=== PATIENT | male | born 1990 | race African-American/Black ===

== ENCOUNTER 2018-06-07 00:02 | Emergency (ER) | payer BC ==
[2018-06-07] MEDS ORDERED: Lidocaine 1% PF 5 ML VIAL ONE (00:51)
--- NOTE | 2018-06-07 10:29 | CT ---
PRELIMINARY REPORT/[facility]/EMERGENTY AFTER-HOURS PROCEDURE CT Head Without Intravenous Contrast EXAM DATE/TIME: 06/07/2018 1:02 AM CLINICAL HISTORY: 28 years old, male; Pain; Headache; Patient HX: L sided head pain for 1 month; Denies HX of being dx with migraines; States pain radiates to his neck; Denies dizziness; Denies vision changes TECHNIQUE: Axial computed tomography images of the head/brain without intravenous contrast. COMPARISON: No relevant prior studies available. FINDINGS: Brain: Normal. No hemorrhage. No significant white matter disease. No edema. Ventricles: Normal. No ventriculomegaly. Bones/joints: Normal. No acute fracture. Sinuses: Normal as visualized. No acute sinusitis. Mastoid air cells: Normal as visualized. No mastoid effusion. Soft tissues: There is mild soft tissue stranding/hematoma at the RIGHT vertex measuring approximatel y 3 x 0.8 cm. IMPRESSION: No acute intracranial hemorrhage. Thank you for allowing us to participate in the care of your patient. Dictated and Authenticated by: Miguelangel Adan MD 06/07/2018 1:17 AM Central Time ([place] & [place]) FINAL REPORT CT BRAIN WITHOUT CONTRAST: Date: 06/07/18 FINDINGS/IMPRESSION: I agree with the preliminary report given by Michael. POS: [facility]
== END 2018-06-07 01:46 | disposition home or self-care (01) ==
LOC: ERS 00:02
DX: R51 Headache (principal)
CPT/HCPCS: 20552; 70450; J2001

== ENCOUNTER 2019-07-13 00:33 | Emergency (ER) | payer BC ==
[2019-07-13] MEDS ORDERED: Ketorolac Tromethamine 30 MG/ML VIAL ONE (01:13)
[2019-07-13] MEDS ORDERED: Acetaminophen 500 MG TAB ONE (01:13)
== END 2019-07-13 02:43 | disposition home or self-care (01) ==
LOC: ERS 00:33
DX: G43.909 Migraine, unspecified, not intractable, without status migrainosus (principal)
CPT/HCPCS: 96361; 96374; J1885

== ENCOUNTER 2020-01-06 15:47 | Inpatient (IN) | payer BC, OTHER ==
[2020-01-06] MEDS ORDERED: Azithromycin 500 MG VIAL ONE (16:40)
[2020-01-06] MEDS ORDERED: Acetaminophen 500 MG TAB ONE (16:44)
[2020-01-06] MEDS ORDERED: Ondansetron PF 4 MG/2 ML Vial IVP PRN (18:51)
[2020-01-06] MEDS ORDERED: Ondansetron ODT 4 MG TAB PO PRN (18:51)
[2020-01-06] MEDS ORDERED: Calcium Carbonate 500 MG ChewTAB PO PRN (18:51)
[2020-01-06] MEDS ORDERED: Guaifenesin DM 100-10/5 ML UDCUP PO PRN (18:51)
--- NOTE | 2020-01-06 19:41 | HP ---
PRIMARY CARE PHYSICIAN: None. CHIEF COMPLAINT: Worsening right-sided flank pain. HISTORY OF PRESENT ILLNESS: The patient is a 29-year-old male with past medical history significant for obesity who presents to the ER for the above complaint. The patient originally reported to the ER in [place] last Friday for right-sided flank pain. At that time, he had no nausea, vomiting, or diarrhea. He had no urinary symptoms. He denied any fever or chills. At that time, CT of the abdomen and pelvis was done and it showed a right-sided pneumonia. The patient apparently left AMA, but when he did leave, he did receive a prescription for Levaquin, which he reports he has been taking as prescribed. Then the patient reports this morning that he woke up with worsening right-sided flank pain with associated nonproductive cough and vomiting. He is unable to tolerate any p.o. intake. No liquids or solids. He denies any hemoptysis. He denies any diarrhea. He denies any urinary symptoms. He did report chills. For these reasons, he reported back to the ER in [place]. At the [place] ER, the patient was found to be febrile at 101.3, tachycardic with a heart rate of 130, tachypneic with a respiratory rate of 28. He was 97% on room air. CT of the abdomen and pelvis showed worsening right lower lobe pneumonia. His troponin was negative. His BNP was less than 10. His lactic acid is 1.3. His WBCs were 19.5, and the patient had a creatinine of 1.41. His LFTs and lipase were within normal limits. His UA was unremarkable. The patient was given azithromycin, vancomycin, and cefepime IV and 2 L of normal saline and transferred over to the [facility]. PAST MEDICAL HISTORY: Obesity. PAST SURGICAL HISTORY: None. SOCIAL HISTORY: The patient lives in [place] with his spouse. He works for [email or web address]. He denies any history of smoking, illicit drug use, or alcohol intake. FAMILY HISTORY: Noncontributory to this case. ALLERGIES: NO KNOWN DRUG ALLERGIES. HOME MEDICATIONS: Levaquin 750 mg p.o. daily. REVIEW OF SYSTEMS: All other review of systems are negative unless otherwise noted in the HPI. PHYSICAL EXAMINATION: VITAL SIGNS: Temperature 101.3, blood pressure 115/82, heart rate 130, respirations 28, 97% on room air. In the [facility] ER at time of assessment, the patient's temperature was 100.8, blood pressure 130/73, pulse 106, respirations 25 and nonlabored, 98% on room air, 0/10 pain. CONSTITUTIONAL: The patient is alert and oriented to person, place, and time. He appears uncomfortable and nontoxic. He is still tachycardic and febrile. HEENT: Head, atraumatic and normocephalic. Eyes, PERRLA. Extraocular muscles are intact. ENT, tympanic membranes bilaterally intact. No bleeding. Nares are patent bilaterally. No bleeding. Oropharynx is clear. Uvula midline. Tonsils normal. Moist mucous membranes. No oral lesions. NECK: Supple. Trachea midline. No cervical lymphadenopathy. No neck stiffness. RESPIRATORY: Chest, respirations clear to auscultation. No rhonchi, wheezes, or rubs noted. CARDIOVASCULAR: The patient presents tachycardic, regular rate and rhythm. S1 and S2 appreciated. No murmurs, rubs, or gallops. ABDOMEN: Soft, nontender. Active bowel sounds. No guarding. No rigidity. No rebound tenderness. Negative Rovsing's sign. No abdominal bruit auscultated. BACK: Full range of motion. No central spinous tenderness. No CVA tenderness. EXTREMITIES: Upper extremities, full range of motion. Normal strength. Sensation intact. Palpable radial pulses. Lower extremities, normal range of motion. Normal strength. Sensation intact. Palpable pedal pulses. No swelling. NEUROLOGIC: Patient is alert and oriented to person, place, and time. Speech is normal. Gait is normal. SKIN: Clean, dry, and intact. PSYCHIATRIC: Normal affect. No suicidal or homicidal ideation. LABS AND DIAGNOSTIC DATA: CT of the abdomen and pelvis showed worsening right lower lobe infiltrates. Lactic acid 1.3. Initial troponin negative. BNP less than 10. WBCs 19.5, hemoglobin 12.6, hematocrit 43.4, platelets 323. Sodium 133, potassium 3.9, chloride 100, carbon dioxide 23, BUN 17, creatinine 1.41, glucose 138, lipase 64. T bilirubin 0.7, AST 66, ALT 74, alkaline phosphatase 74. UA was unremarkable. IMPRESSION AND PLAN: 1. Community-acquired pneumonia, status post COVID-19. We will admit the patient to the medical floor, inpatient status. Expected length of stay, greater than 2 midnights. The patient tested positive for COVID [address] of the abdomen did show worsening right lower lobe pneumonia. We will continue azithromycin and Rocephin. The patient received 2 L IV fluid resuscitation. We will continue IV fluids at maintenance rate. We will continue supportive care, supplemental oxygen. The patient is currently saturating 97% on room air, able to talk in complete sentences. We will repeat a CBC and BMP in the a.m. 2. Sepsis likely secondary to problem #1. Blood cultures and urine cultures are pending. Lactic acid was 1.3. WBCs are 19.5. We will continue azithromycin and Rocephin and await cultures. 3. COVID. The patient was positive 2 weeks ago. He does work at [email or web address]. He reports that he had been feeling better prior to this Friday when he developed the right-sided flank pain. We will place the patient on droplet precautions. We will give Zofran p.r.n. 4. Acute kidney injury. The patient reports a decreased oral intake and has been vomiting. He had a creatinine of 1.41, baseline appears to be 1.05 on 01/01. We will continue IV fluid resuscitation. We will recheck labs in the a.m. We will avoid nephrotoxic medications. 5. Obesity. 6. Consult PT. 7. Heparin for deep venous thrombosis prophylaxis. SCDs for deep venous thrombosis prophylaxis. Protonix for gastrointestinal prophylaxis. 8. The patient is a full code. His MPOA is his spouse, Luz Elena Barber, #[phone]. 9. Discussed the case with Dr. Jones. Job ID: [id number] MTDD
[2020-01-06] MEDS: Sodium Chloride 0.9% 1,000 ML IV SCH (21:10)
[2020-01-06 21:51] VITALS: BMI 38.5
[2020-01-06] MEDS: Heparin 5,000 UNITS/ML VIAL SC SCH (21:57)
[2020-01-07] MEDS: Sodium Chloride 0.9% 1,000 ML IV SCH ×4 (03:33→20:56)
[2020-01-07] MEDS: Acetaminophen 325 MG TAB PO PRN ×2 (03:48→16:24)
[2020-01-07 05:34] LABS: Anion Gap 12 mmol/L (10-20); BUN (Urea Nitrogen) 13 mg/dL (8.9-20.6); Calc. Creatinine Clearance 170 mL/min (70-130); Calcium 8.1 mg/dL (7.8-10.44); Carbon Dioxide 23 mmol/L (22-29); Chloride 105 mmol/L (98-107); Estimated GFR-MDRD Greater than 90; Glucose 104 mg/dL (70-105); Sodium 136 mmol/L (136-145)
[2020-01-07 05:36] LABS: #Eosinphils 0.1 thou/uL (0.0-0.7); #Lymphocytes 1.5 thou/uL (1.20-3.40); #Monocytes 2.4 thou/uL (0.11-0.59); %Basophils 0.2 % (0.0-1.0); %Eosinophils 0.3 % (0.0-10.0); %Lymphocytes 8.5 % (21.0-51.0); %Monocytes 13.4 % (0.0-10.0); %Neutrophils 77.6 % (42.0-75.0); Hemoglobin 10.6 g/dL (14.0-18.0); MDiff Complete? YES; Mean Corpuscular HGB CONC 32.1 g/dL (32.0-36.0); Mean Corpuscular Hemoglobin 21.4 pg (27.0-31.0); Mean Corpuscular Volume 66.7 fL (78.0-98.0); Microcytosis SLIGHT = 6-15 cells (100X) (0-5/hpf); Platelet Count 266 thou/uL (130-400); Platelet Morphology Comment Appears Adequate; RBC Distribution Width 12.7 % (11.5-14.5); Red Blood Cell (RBC) Count 4.95 mill/uL (4.70-6.10)
[2020-01-07] MEDS: Heparin 5,000 UNITS/ML VIAL SC SCH ×2 (08:15→20:51)
[2020-01-07] MEDS: cefTRIAXone\\ROCEPHIN 2 GM in Sodium Chloride 0.9% 100 ML IVPB SCH (14:38)
[2020-01-07] MEDS: HYDROcodone/Acetaminophen 5/325 mg Tablet PO PRN ×2 (14:39→20:51)
[2020-01-07] MEDS: Azithromycin 500 MG in Sodium Chloride 0.9% 250 ML 250 ML IVPB SCH (16:02)
--- NOTE | 2020-01-07 16:23 | PDOC.HOSPP ---
- Subjective Encounter Date: 01/07/20 Subjective: patient seen on f/u for pneumonia, covid +, sepsis refers does not feel very good. refers fever chills cough and malaise, pt on RA during my evaluation with adequate saturation - Objective Vital Signs & Weight: Vital Signs (12 hours) Temp Pulse Pulse Pulse Resp BP BP 01/07/20 12:32 103 H 113 H 143/77 H 137/86 01/07/20 12:00 99.7 F H 104 H 18 01/07/20 08:00 96.3 F L 94 20 BP Pulse Ox Pulse Ox Pulse Ox 01/07/20 12:32 96 98 01/07/20 12:00 143/77 H 96 01/07/20 08:00 136/80 96 Weight Admit Weight 276 lb 11.2 oz Weight 276 lb 11.2 oz I&O: 01/06/20 01/07/20 01/08/20 06:59 06:59 06:59 Intake Total 1580 Output Total 1200 Balance 380 Result Diagrams: 01/07/20 05:02 01/07/20 05:02 Hospitalist ROS - Review of Systems All other systems reviewed; all pertinent +/- noted in HPI/Subj - Medication Medications: Active Medications Generic Name Dose Route Start Last Admin Trade Name Freq PRN Reason Stop Dose Admin Acetaminophen 650 mg 01/06/20 18:51 01/07/20 03:48 Tylenol PO 650 mg Q4H PRN Administration Headache/Fever/Mild Pain (1-3) Hydrocodone Bitart/Acetaminophen 1 tab 01/06/20 18:51 01/07/20 14:39 [place] 5/325 PO 1 tab Q4H PRN Administration Moderate Pain (4-6) Heparin Sodium (Porcine) 5,000 units 01/06/20 21:00 01/07/20 08:15 Heparin SC 5,000 units BID ÁLVARO Administration Sodium Chloride 1,000 mls @ 125 mls/hr 01/06/20 20:00 01/07/20 12:53 Normal Saline 0.9% IV 1,000 mls .Q8H ÁLVARO Administration Azithromycin 500 mg/ Sodium 250 mls @ 250 mls/hr 01/07/20 15:00 01/07/20 16: 02 Chloride IVPB 250 mls 1500 ÁLVARO Administration Ceftriaxone Sodium 2 gm/ 100 mls @ 200 mls/hr 01/07/20 14:00 01/07/20 14:38 Sodium Chloride IVPB 100 mls 1400 ÁLVARO Administration Pantoprazole Sodium 40 mg 01/07/20 09:00 01/07/20 08:15 Protonix PO 40 mg DAILY ÁLVARO Administration Sodium Chloride 10 ml 01/06/20 18:51 01/07/20 08:15 Flush - Normal Saline IVF 10 ml Q12HR PRN Administration Saline Flush - Exam General Appearance: NAD, awake alert, ill appearing Eye: PERRL, anicteric sclera ENT: normocephalic atraumatic, no oropharyngeal lesions Neck: supple, symmetric, no JVD Heart: RRR, no murmur, no gallops Respiratory: CTAB, no wheezes, no rales Gastrointestinal: soft, non-tender, non-distended Extremities: no cyanosis, no clubbing Skin: normal turgor, no lesions Neurological: cranial nerve grossly intact, normal sensation to touch Musculoskeletal: normal tone, normal strength, no muscle wasting Psychiatric: normal affect, normal behavior, A&O x 3 Hosp A/P (1) Sepsis Code(s): A41.9 - SEPSIS, UNSPECIFIED ORGANISM Status: Acute (2) COVID-19 Code(s): U07.1 - COVID-19 Status: Acute (3) Pneumonia Code(s): J18.9 - PNEUMONIA, UNSPECIFIED ORGANISM Status: Acute (4) SAMI (acute kidney injury) Code(s): N17.9 - ACUTE KIDNEY FAILURE, UNSPECIFIED Status: Acute - Plan - continue with rocephin and azithromycin - continues with fever will order blood culture set - 02 supplemenatation prn - continue ivfs - continue isolation protocols - renal function seems to be back to normal - leukocytosis improving, will consider ID if no significant change observed
[2020-01-07] MEDS ORDERED: Loperamide HCl 2 MG CAP PO PRN (23:16)
[2020-01-08 05:44] LABS: Anion Gap 11 mmol/L (10-20); BUN (Urea Nitrogen) 9 mg/dL (8.9-20.6); Calc. Creatinine Clearance 198 mL/min (70-130); Calcium 8.2 mg/dL (7.8-10.44); Carbon Dioxide 23 mmol/L (22-29); Chloride 106 mmol/L (98-107); Estimated GFR-MDRD Greater than 90; Glucose 96 mg/dL (70-105); Potassium 3.7 mmol/L (3.5-5.1); Sodium 136 mmol/L (136-145)
[2020-01-08] MEDS: Sodium Chloride 0.9% 1,000 ML IV SCH ×2 (07:03→16:41)
[2020-01-08] MEDS: Heparin 5,000 UNITS/ML VIAL SC SCH ×2 (08:50→20:13)
[2020-01-08 08:56] LABS: Band 10 % (5-11); Eosinophils 1 % (0-10); Hemoglobin 10.4 g/dL (14.0-18.0); Lymphocytes 12 % (21-51); MDiff Complete? YES; Mean Corpuscular HGB CONC 30.5 g/dL (32.0-36.0); Mean Corpuscular Hemoglobin 20.5 pg (27.0-31.0); Mean Corpuscular Volume 67.1 fL (78.0-98.0); Monocytes 5 % (0-10); Neutrophil 71 % (42-75); Platelet Count 294 thou/uL (130-400); RBC Distribution Width 12.5 % (11.5-14.5); Red Blood Cell (RBC) Count 5.08 mill/uL (4.70-6.10); White Blood Cell (WBC) Count 19.4 thou/uL (4.8-10.8)
[2020-01-08] MEDS: cefTRIAXone\\ROCEPHIN 2 GM in Sodium Chloride 0.9% 100 ML IVPB SCH (15:11)
[2020-01-08] MEDS: Azithromycin 500 MG in Sodium Chloride 0.9% 250 ML 250 ML IVPB SCH (15:11)
[2020-01-08] MEDS: Acetaminophen 325 MG TAB PO PRN (16:51)
--- NOTE | 2020-01-08 17:31 | PDOC.HOSPP ---
- Subjective Encounter Date: 01/08/20 Encounter Time: 17:30 Subjective: f/u for COVID-19 PNA on Rocephin/Zithromax. Spiking fevers throughout the day. Overall feels weak and fatigued. - Objective Vital Signs & Weight: Vital Signs (12 hours) Temp Pulse Resp BP Pulse Ox 01/08/20 15:20 99.7 F H 106 H 16 128/70 94 L 01/08/20 11:50 100.1 F H 94 18 135/81 95 01/08/20 08:58 100.0 F H 96 16 135/77 96 01/08/20 05:35 99.9 F H 97 22 H 134/80 94 L Weight Admit Weight 276 lb 11.2 oz Weight 276 lb 11.2 oz I&O: 01/07/20 01/08/20 01/09/20 06:59 06:59 06:59 Intake Total 1580 5011 440 Output Total 1200 1880 Balance 380 3131 440 Result Diagrams: 01/08/20 05:05 01/08/20 05:05 Additional Labs: Microbiology 01/07/20 17:01 Venous blood - Right Hand Blood Culture - Preliminary Specimen has been received and culture in progress. No Growth to date. 01/07/20 17:01 Venous blood - Left Arm Blood Culture - Preliminary Specimen has been received and culture in progress. No Growth to date. Laboratory Tests 01/07/20 05:02 WBC 18.0 H Hgb 10.6 L Radiology Reviewed by me: Yes (CT chest/abd/pel - RLL PNA and CHUCK infiltrates) EKG Reviewed by me: Yes (Tele - SR) Hospitalist ROS - Medication Medications: Active Medications Generic Name Dose Route Start Last Admin Trade Name Freq PRN Reason Stop Dose Admin Acetaminophen 650 mg 01/06/20 18:51 01/08/20 16:51 Tylenol PO 650 mg Q4H PRN Administration Headache/Fever/Mild Pain (1-3) Hydrocodone Bitart/Acetaminophen 1 tab 01/06/20 18:51 01/07/20 20:51 [place] 5/325 PO 1 tab Q4H PRN Administration Moderate Pain (4-6) Heparin Sodium (Porcine) 5,000 units 01/06/20 21:00 01/08/20 08:50 Heparin SC 5,000 units BID ÁLVARO Administration Azithromycin 500 mg/ Sodium 250 mls @ 250 mls/hr 01/07/20 15:00 01/08/20 15: 11 Chloride IVPB 250 mls 1500 ÁLVARO Administration Ceftriaxone Sodium 2 gm/ 100 mls @ 200 mls/hr 01/07/20 14:00 01/08/20 15:11 Sodium Chloride IVPB 100 mls 1400 ÁLVARO Administration Sodium Chloride 1,000 mls @ 75 mls/hr 01/07/20 16:30 01/08/20 16:41 Normal Saline 0.9% IV Not Given .[id number] ÁLVARO Ondansetron HCl 4 mg 01/06/20 18:51 01/08/20 05:33 Zofran IVP 4 mg Q6H PRN Administration Nausea/Vomiting Pantoprazole Sodium 40 mg 01/07/20 09:00 01/08/20 08:50 Protonix PO 40 mg DAILY ÁLVARO Administration Sodium Chloride 10 ml 01/06/20 18:51 01/07/20 08:15 Flush - Normal Saline IVF 10 ml Q12HR PRN Administration Saline Flush - Exam General Appearance: NAD, awake alert Eye: PERRL, anicteric sclera ENT: normocephalic atraumatic, no oropharyngeal lesions Neck: supple, symmetric, no JVD, no thyromegaly, no lymphadenopathy Heart: RRR, no murmur, no gallops, no rubs, normal peripheral pulses Heart - other findings: S1, S2 Respiratory: normal chest expansion Respiratory - other findings: diminished in R base, occasional coarse sound Gastrointestinal: soft, non-tender, non-distended, normal bowel sounds, no palpable masses Extremities: no cyanosis, no clubbing, no edema Skin: normal turgor, no lesions Neurological: cranial nerve grossly intact, no new deficit Musculoskeletal: normal tone, normal strength, no muscle wasting Psychiatric: normal affect, A&O x 3 Hosp A/P (1) Pneumonia due to COVID-19 virus Code(s): U07.1 - COVID-19; J12.89 - OTHER VIRAL PNEUMONIA Status: Acute Plan: Continue Rocephin/Zithromax, Albuterol MDI (2) Sepsis due to pneumonia Code(s): J18.9 - PNEUMONIA, UNSPECIFIED ORGANISM; A41.9 - SEPSIS, UNSPECIFIED ORGANISM Status: Acute Plan: See #1 above (3) SAMI (acute kidney injury) Code(s): N17.9 - ACUTE KIDNEY FAILURE, UNSPECIFIED Status: Acute Plan: Resolving, avoid nephrotoxic meds and limit contrast exposure (4) Microcytic anemia Code(s): D50.9 - IRON DEFICIENCY ANEMIA, UNSPECIFIED Status: Chronic Plan: Check stool guaiac, serum Iron, Retic count - Plan continue antibiotics, 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
[2020-01-09 05:37] LABS: Reticulocyte Count 0.8 % (0.5-1.5)
[2020-01-09 06:40] LABS: Eosinophils 2 % (0-10); Hemoglobin 10.1 g/dL (14.0-18.0); Hypochromia SLIGHT = 6-15 cells (100X) (0-5/hpf); Lymphocytes 7 % (21-51); MDiff Complete? YES; Mean Corpuscular Hemoglobin 20.2 pg (27.0-31.0); Mean Corpuscular Volume 67.4 fL (78.0-98.0); Mean Platelet Volume 10.8 fL (7.4-10.4); Monocytes 9 % (0-10); Neutrophil 82 % (42-75); Platelet Count 291 thou/uL (130-400); Platelet Morphology Comment Appears Adequate; RBC Distribution Width 12.7 % (11.5-14.5); Red Blood Cell (RBC) Count 5.02 mill/uL (4.70-6.10); Target Cells SLIGHT = 2-5 cells (100X) (0-1/hpf); White Blood Cell (WBC) Count 13.4 thou/uL (4.8-10.8)
[2020-01-09] MEDS: HYDROcodone/Acetaminophen 5/325 mg Tablet PO PRN (08:00)
[2020-01-09] MEDS: Sodium Chloride 0.9% 1,000 ML IV SCH ×2 (08:00→20:52)
[2020-01-09] MEDS: Heparin 5,000 UNITS/ML VIAL SC SCH ×2 (08:01→20:52)
--- NOTE | 2020-01-09 12:19 | PDOC.HOSPP ---
- Subjective Encounter Date: 01/09/20 Encounter Time: 12:15 Subjective: f/u for PNA and COVID - Objective Vital Signs & Weight: Vital Signs (12 hours) Temp Pulse Resp BP Pulse Ox 01/09/20 02:48 99.2 F 90 18 132/83 97 Weight Admit Weight 276 lb 11.2 oz Weight 276 lb 11.2 oz I&O: 01/08/20 01/09/20 01/10/20 06:59 06:59 06:59 Intake Total 5011 3790 Output Total 1880 1900 Balance 3131 1890 Result Diagrams: 01/09/20 05:16 01/08/20 05:05 Additional Labs: Microbiology 01/07/20 17:01 Venous blood - Right Hand Blood Culture - Preliminary Specimen has been received and culture in progress. No Growth to date. 01/07/20 17:01 Venous blood - Left Arm Blood Culture - Preliminary Specimen has been received and culture in progress. No Growth to date. Laboratory Tests 12/24/19 01/07/20 16:10 05:02 WBC 18.0 H Hgb 10.6 L COVID-19 PCR DETECTED A* Hospitalist ROS - Medication Medications: Active Medications Generic Name Dose Route Start Last Admin Trade Name Freq PRN Reason Stop Dose Admin Acetaminophen 650 mg 01/06/20 18:51 01/08/20 16:51 Tylenol PO 650 mg Q4H PRN Administration Headache/Fever/Mild Pain (1-3) Hydrocodone Bitart/Acetaminophen 1 tab 01/06/20 18:51 01/09/20 08:00 [place] 5/325 PO 1 tab Q4H PRN Administration Moderate Pain (4-6) Heparin Sodium (Porcine) 5,000 units 01/06/20 21:00 01/09/20 08:01 Heparin SC 5,000 units BID ÁLVARO Administration Azithromycin 500 mg/ Sodium 250 mls @ 250 mls/hr 01/07/20 15:00 01/08/20 15: 11 Chloride IVPB 250 mls 1500 ÁLVARO Administration Ceftriaxone Sodium 2 gm/ 100 mls @ 200 mls/hr 01/07/20 14:00 01/08/20 15:11 Sodium Chloride IVPB 100 mls 1400 ÁLVARO Administration Sodium Chloride 1,000 mls @ 75 mls/hr 01/07/20 16:30 01/09/20 08:00 Normal Saline 0.9% IV 1,000 mls .[id number] ÁLVARO Administration Ondansetron HCl 4 mg 01/06/20 18:51 01/08/20 05:33 Zofran IVP 4 mg Q6H PRN Administration Nausea/Vomiting Pantoprazole Sodium 40 mg 01/07/20 09:00 01/09/20 08:01 Protonix PO 40 mg DAILY ÁLVARO Administration Sodium Chloride 10 ml 01/06/20 18:51 01/07/20 08:15 Flush - Normal Saline IVF 10 ml Q12HR PRN Administration Saline Flush - Exam General Appearance: NAD, awake alert Eye: PERRL, anicteric sclera ENT: normocephalic atraumatic, no oropharyngeal lesions Neck: supple, symmetric, no JVD, no thyromegaly, no lymphadenopathy Heart: RRR, no murmur, no gallops, no rubs, normal peripheral pulses Heart - other findings: S1, S2 Respiratory: no rales, no ronchi, normal chest expansion Respiratory - other findings: diminished in RLL Gastrointestinal: soft, non-tender, non-distended, normal bowel sounds, no palpable masses Extremities: no cyanosis, no clubbing, no edema Skin: normal turgor, no lesions Neurological: cranial nerve grossly intact, no new deficit Musculoskeletal: normal tone, normal strength, no muscle wasting Psychiatric: normal affect, A&O x 3 Hosp A/P (1) Pneumonia due to COVID-19 virus Code(s): U07.1 - COVID-19; J12.89 - OTHER VIRAL PNEUMONIA Status: Acute Plan: Continue Zithromax/Rocephin, Albuterol MDI PRN (2) Sepsis due to pneumonia Code(s): J18.9 - PNEUMONIA, UNSPECIFIED ORGANISM; A41.9 - SEPSIS, UNSPECIFIED ORGANISM Status: Acute Plan: Improved, continue IV abx (3) SAMI (acute kidney injury) Code(s): N17.9 - ACUTE KIDNEY FAILURE, UNSPECIFIED Status: Acute Plan: Resolved, avoid nephrotoxic meds and limit contrast (4) Microcytic anemia Code(s): D50.9 - IRON DEFICIENCY ANEMIA, UNSPECIFIED Status: Chronic Plan: Start FeSO4 325mg BID - Plan continue antibiotics, respiratory therapy, out of bed/ambulate, DVT proph w/SCDs Stable currently Continue Rocephin/Zithromax COVID-19 + from 12/24/19 Start FeSO4 325mg BID Isolation precautions Likely d/c in 24h
[2020-01-09] MEDS: cefTRIAXone\\ROCEPHIN 2 GM in Sodium Chloride 0.9% 100 ML IVPB SCH (14:14)
[2020-01-09] MEDS: Azithromycin 500 MG in Sodium Chloride 0.9% 250 ML 250 ML IVPB SCH (14:15)
[2020-01-09] MEDS: Ferrous Sulfate 325 MG TAB PO SCH (14:15)
[2020-01-10] MEDS: Ferrous Sulfate 325 MG TAB PO SCH ×2 (10:06→17:07)
[2020-01-10] MEDS: Heparin 5,000 UNITS/ML VIAL SC SCH ×2 (10:06→22:30)
[2020-01-10] MEDS: cefTRIAXone\\ROCEPHIN 2 GM in Sodium Chloride 0.9% 100 ML IVPB SCH (14:56)
[2020-01-10] MEDS: Azithromycin 500 MG in Sodium Chloride 0.9% 250 ML 250 ML IVPB SCH (16:18)
--- NOTE | 2020-01-10 17:26 | PDOC.HOSPP ---
- Subjective Encounter Date: 01/10/20 Encounter Time: 17:20 Subjective: f/u for COVID-19 PNA on Rocephin/Zithromax. Still with persistent coughing. Appetite ok. - Objective Vital Signs & Weight: Vital Signs (12 hours) Temp Pulse Resp BP Pulse Ox 01/10/20 16:00 98.1 F 98 24 H 144/91 H 98 01/10/20 12:00 98.8 F 69 20 145/96 H 01/10/20 08:00 97 01/10/20 07:44 98.5 F 78 28 H 159/98 H 97 Weight Admit Weight 276 lb 11.2 oz Weight 276 lb 11.2 oz I&O: 01/09/20 01/10/20 01/11/20 06:59 06:59 06:59 Intake Total 3790 3340 Output Total 1900 1575 Balance 1890 1765 Result Diagrams: 01/09/20 05:16 01/08/20 05:05 Additional Labs: Microbiology 01/07/20 17:01 Venous blood - Right Hand Blood Culture - Preliminary Specimen has been received and culture in progress. No Growth to date. 01/07/20 17:01 Venous blood - Left Arm Blood Culture - Preliminary Specimen has been received and culture in progress. No Growth to date. Laboratory Tests 12/24/19 01/07/20 16:10 05:02 WBC 18.0 H Hgb 10.6 L COVID-19 PCR DETECTED A* Hospitalist ROS - Medication Medications: Active Medications Generic Name Dose Route Start Last Admin Trade Name Freq PRN Reason Stop Dose Admin Acetaminophen 650 mg 01/06/20 18:51 01/08/20 16:51 Tylenol PO 650 mg Q4H PRN Administration Headache/Fever/Mild Pain (1-3) Hydrocodone Bitart/Acetaminophen 1 tab 01/06/20 18:51 01/09/20 08:00 [place] 5/325 PO 1 tab Q4H PRN Administration Moderate Pain (4-6) Ferrous Sulfate 325 mg 01/09/20 17:00 01/10/20 17:07 Feosol PO 325 mg BID-WM ÁLVARO Administration Heparin Sodium (Porcine) 5,000 units 01/06/20 21:00 01/10/20 10:06 Heparin SC 5,000 units BID ÁLVARO Administration Azithromycin 500 mg/ Sodium 250 mls @ 250 mls/hr 01/07/20 15:00 01/10/20 16: 18 Chloride IVPB 250 mls 1500 ÁLVARO Administration Ceftriaxone Sodium 2 gm/ 100 mls @ 200 mls/hr 01/07/20 14:00 01/10/20 14:56 Sodium Chloride IVPB 100 mls 1400 ÁLVARO Administration Sodium Chloride 1,000 mls @ 75 mls/hr 01/07/20 16:30 01/09/20 20:52 Normal Saline 0.9% IV 1,000 mls .[id number] ÁLVARO Administration Ondansetron HCl 4 mg 01/06/20 18:51 01/08/20 05:33 Zofran IVP 4 mg Q6H PRN Administration Nausea/Vomiting Pantoprazole Sodium 40 mg 01/07/20 09:00 01/10/20 10:06 Protonix PO 40 mg DAILY ÁLVARO Administration Sodium Chloride 10 ml 01/06/20 18:51 01/07/20 08:15 Flush - Normal Saline IVF 10 ml Q12HR PRN Administration Saline Flush - Exam General Appearance: NAD, awake alert Eye: PERRL, anicteric sclera ENT: normocephalic atraumatic, no oropharyngeal lesions Neck: supple, symmetric, no JVD, no thyromegaly, no lymphadenopathy Heart: RRR, no murmur, no gallops, no rubs, normal peripheral pulses Heart - other findings: S1, S2 Respiratory: CTAB, normal chest expansion, no tachypnea Respiratory - other findings: diminished in bases Gastrointestinal: soft, non-tender, non-distended, normal bowel sounds, no palpable masses Extremities: no cyanosis, no clubbing, no edema Skin: normal turgor, no lesions Neurological: cranial nerve grossly intact, no new deficit Musculoskeletal: normal tone, normal strength, no muscle wasting Psychiatric: normal affect, A&O x 3 Hosp A/P (1) Pneumonia due to COVID-19 virus Code(s): U07.1 - COVID-19; J12.89 - OTHER VIRAL PNEUMONIA Status: Acute Plan: Continue Rocephin/Zithromax then de-escalate 01/11/20 (2) Sepsis due to pneumonia Code(s): J18.9 - PNEUMONIA, UNSPECIFIED ORGANISM; A41.9 - SEPSIS, UNSPECIFIED ORGANISM Status: Acute Plan: Resolving with supportive mgmt (3) SAMI (acute kidney injury) Code(s): N17.9 - ACUTE KIDNEY FAILURE, UNSPECIFIED Status: Acute Plan: Resolving, saline lock IVF's (4) Microcytic anemia Code(s): D50.9 - IRON DEFICIENCY ANEMIA, UNSPECIFIED Status: Chronic - Plan continue antibiotics, 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
[2020-01-10] MEDS: Guaifenesin DM 100-10/5 ML UDCUP PO SCH (22:30)
[2020-01-11] MEDS: Guaifenesin DM 100-10/5 ML UDCUP PO SCH ×2 (06:16→10:50)
[2020-01-11] MEDS: Ferrous Sulfate 325 MG TAB PO SCH (08:06)
[2020-01-11] MEDS: Heparin 5,000 UNITS/ML VIAL SC SCH (08:06)
--- NOTE | 2020-01-11 09:37 | DIS ---
DATE OF ADMISSION: 01/06/2020 DATE OF DISCHARGE: 01/11/2020 DISCHARGE DIAGNOSES: 1. Pneumonia due to COVID-19 viral infection. 2. Sepsis secondarily to pneumonia, resolving. 3. Acute kidney injury, resolved. 4. Microcytic anemia with iron deficiency component. CONSULTATIONS: None. PERTINENT LABORATORY AND X-RAY FINDINGS: Serum iron level 32. CBC showed a white blood cell count ranging between 13.4 to 19.4, hemoglobin ranged between 10.1 to 10.6, reticulocyte count 0.8. Blood cultures x2 dated 01/07/2020, showed no growth at [address] of the chest, abdomen, and pelvis dated 01/06/2020, showed right lower lobe pneumonia greater in density than previous imaging. Tiny ground-glass opacities in the left upper lobe. HOSPITAL COURSE: The patient initially presented with complaints of right-sided flank pain and shortness of breath in the context of previous COVID-19 PCR positive on 12/24/2019. Chest imaging showed right lower lobe infiltrate and the patient was noted febrile. The patient was initiated on broad-spectrum IV antibiotic therapy including azithromycin and Rocephin and received IV fluid resuscitation after meeting sepsis criteria. The patient was noted with O2 saturations in the upper 90% range, but did receive initial transient oxygen supplementation. The patient continued to receive IV antibiotic therapy and placed on isolation protocol during the hospital course. The patient was slow to clinically improved, however, was able to tolerate regular oral intake with stable vital signs and remained afebrile for the remainder of the hospital course. Overall, the patient did remain clinically stable and ready for discharge on 01/11/2020. I have examined the patient at the time of discharge and discussed followup instructions. The patient verbalized understanding and agreement, ready for discharge on 01/11/2020. DISCHARGE MEDICATIONS: 1. Azithromycin 500 mg p.o. daily x7 days. 2. Ferrous sulfate 325 mg p.o. b.i.d. FOLLOWUP: The patient to establish care with primary care provider in the [facility] in [place], [place] after discharge. CONDITION ON DISCHARGE: Stable. ACTIVITY: Ad-gregor. May return to work duty on 01/18/2020. DIET: Regular. CODE STATUS: Full. DISPOSITION: Home on 01/11/2020. TIME SPENT: Total time preparing and coordinating discharge, 33 minutes. Job ID: [id number]
[2020-01-11 11:18] VITALS: BP 148/89; TEMP 98.4
== END 2020-01-11 12:24 | disposition home or self-care (01) | DRG 871 ==
LOC: ERS 15:47 → 2SW 16:54 → T4-B 01-08 20:02
PROVIDERS: ADMIT Internal Medicine; ATTEND Internal Medicine
PROC: 8E0ZXY6 Isolation (ICD-10-PCS; principal; 2020-01-06)
DX: A41.89 Other specified sepsis (principal); U07.1 COVID-19; J12.89 Other viral pneumonia; N17.9 Acute kidney failure, unspecified; E66.9 Obesity, unspecified; D50.9 Iron deficiency anemia, unspecified; Z68.38 Body mass index [BMI] 38.0-38.9, adult
CPT/HCPCS: 36415; 36600; 80048; 83540; 85007; 85025; 85027; 85046; 87040; 94760; 96361; 96365; J0456; J0696; J1644; J2405; J3490; J7050

== ENCOUNTER 2023-02-10 09:24 | Inpatient (IN) | payer BC ==
[2023-02-10 11:46] VITALS: BMI 45.6
[2023-02-10] MEDS ORDERED: Bisacodyl 10 MG SUPP PR PRN (11:52)
[2023-02-10] MEDS ORDERED: Senokot S 8.6-50 MG TAB PO PRN (11:52)
[2023-02-10] MEDS ORDERED: Guaifenesin DM 100-10/5 ML UDCUP PO PRN (11:52)
[2023-02-10] MEDS ORDERED: Ondansetron PF 4 MG/2 ML Vial IVP PRN (11:52)
[2023-02-10] MEDS ORDERED: Acetaminophen 325 MG TAB PO PRN (11:52)
[2023-02-10] MEDS ORDERED: HYDROcodone/Acetaminophen 5/325 mg Tablet PO PRN (11:52)
[2023-02-10] MEDS ORDERED: Calcium Carbonate 500 MG ChewTAB PO PRN (11:52)
[2023-02-10] MEDS: Sodium Chloride 0.9% 1,000 ML IV SCH ×2 (13:07→20:32)
[2023-02-10] MEDS: cefTRIAXone\\ROCEPHIN 1 GM in Sodium Chloride 0.9% 100 ML IVPB SCH (13:07)
[2023-02-10] MEDS: Famotidine 20 MG TAB PO SCH (20:34)
[2023-02-11 07:57] LABS: #Eosinphils 0.1 thou/uL (0.0-0.7); #Monocytes 1.1 thou/uL (0.11-0.59); #Neutrophils 6.4 thou/uL (1.40-6.50); %Basophils 0.4 % (0.0-1.0); %Eosinophils 1.2 % (0.0-10.0); %Lymphocytes 14.6 % (21.0-51.0); %Monocytes 12.2 % (0.0-10.0); Hemoglobin 10.7 g/dL (14.0-18.0); Mean Corpuscular HGB CONC 30.9 g/dL (32.0-36.0); Mean Corpuscular Hemoglobin 20.7 pg (27.0-31.0); Mean Corpuscular Volume 66.8 fl (78.0-98.0); Mean Platelet Volume 11.3 fL (7.4-10.4); Platelet Count 235 10x3/uL (130-400); RBC Distribution Width 14.1 % (11.5-14.5); Red Blood Cell (RBC) Count 5.18 mill/uL (4.70-6.10)
[2023-02-11 08:25] LABS: Anion Gap 11 mmol/L (10-20); BUN (Urea Nitrogen) 11 mg/dL (8.9-20.6); Calc. Creatinine Clearance 191 mL/min (70-130); Calcium 8.5 mg/dL (7.8-10.44); Carbon Dioxide 19 mmol/L (22-29); Chloride 109 mmol/L (98-107); Estimated GFR 87; Glucose 95 mg/dL (70-105); Sodium 135 mmol/L (136-145)
[2023-02-11] MEDS: Famotidine 20 MG TAB PO SCH ×2 (08:31→21:07)
[2023-02-11] MEDS: Sodium Chloride 0.9% 1,000 ML IV SCH ×2 (08:31→14:29)
[2023-02-11 10:20] LABS: CellaVision Operator ID LAB.GE; Microcytosis MODERATE=15-30 cells HPF (0-5); Platelet Adequacy Comment Platelets Normal; Polychromasia SLIGHT = 2-3 cells HPF (0-2)
[2023-02-11] MEDS: cefTRIAXone\\ROCEPHIN 1 GM in Sodium Chloride 0.9% 100 ML IVPB SCH (11:21)
[2023-02-12] MEDS: Sodium Chloride 0.9% 1,000 ML IV SCH ×2 (05:32→11:50)
[2023-02-12 07:41] LABS: #Eosinphils 0.6 thou/uL (0.0-0.7); #Monocytes 1.2 thou/uL (0.11-0.59); %Basophils 0.6 % (0.0-1.0); %Eosinophils 7.8 % (0.0-10.0); %Lymphocytes 31.2 % (21.0-51.0); %Monocytes 17.4 % (0.0-10.0); %Neutrophils 42.7 % (42.0-75.0); Hemoglobin 10.7 g/dL (14.0-18.0); Mean Corpuscular HGB CONC 30.8 g/dL (32.0-36.0); Mean Corpuscular Hemoglobin 20.9 pg (27.0-31.0); Mean Corpuscular Volume 67.6 fl (78.0-98.0); Mean Platelet Volume 11.5 fL (7.4-10.4); Platelet Count 245 10x3/uL (130-400); RBC Distribution Width 14.5 % (11.5-14.5); Red Blood Cell (RBC) Count 5.13 mill/uL (4.70-6.10)
[2023-02-12 08:02] LABS: Anion Gap 4 mmol/L (10-20); BUN (Urea Nitrogen) 8 mg/dL (8.9-20.6); Calc. Creatinine Clearance 206 mL/min (70-130); Calcium 8.4 mg/dL (7.8-10.44); Carbon Dioxide 22 mmol/L (22-29); Chloride 112 mmol/L (98-107); Estimated GFR 95; Glucose 89 mg/dL (70-105); Potassium 3.9 mmol/L (3.5-5.1); Sodium 134 mmol/L (136-145)
[2023-02-12] MEDS: Famotidine 20 MG TAB PO SCH ×2 (08:13→20:08)
[2023-02-12] MEDS: cefTRIAXone\\ROCEPHIN 1 GM in Sodium Chloride 0.9% 100 ML IVPB SCH (11:50)
[2023-02-12] MEDS: Cefdinir 300 MG CAP PO SCH (20:08)
[2023-02-13] MEDS: Sodium Chloride 0.9% 1,000 ML IV SCH ×2 (01:06→11:49)
[2023-02-13 06:34] LABS: Hemoglobin 11.6 g/dL (14.0-18.0); Red Blood Cell (RBC) Count 5.55 mill/uL (4.70-6.10)
[2023-02-13 06:35] LABS: #Basophils 0.1 thou/uL (0.0-0.2); #Eosinphils 0.6 thou/uL (0.0-0.7); #Monocytes 1.1 thou/uL (0.11-0.59); %Basophils 0.6 % (0.0-1.0); %Eosinophils 7.8 % (0.0-10.0); %Lymphocytes 27.7 % (21.0-51.0); %Neutrophils 49.5 % (42.0-75.0); Mean Corpuscular HGB CONC 30.9 g/dL (32.0-36.0); Mean Corpuscular Hemoglobin 20.9 pg (27.0-31.0); Mean Platelet Volume 11.2 fL (7.4-10.4); Platelet Count 272 10x3/uL (130-400); RBC Distribution Width 14.4 % (11.5-14.5)
[2023-02-13 06:40] LABS: Mean Corpuscular Volume 67.6 fl (78.0-98.0)
[2023-02-13 06:52] LABS: Chloride 108 mmol/L (98-107); Potassium 4.2 mmol/L (3.5-5.1); Sodium 138 mmol/L (136-145)
[2023-02-13 06:53] LABS: Anion Gap 11 mmol/L (10-20); BUN (Urea Nitrogen) 9 mg/dL (8.9-20.6); Calc. Creatinine Clearance 216 mL/min (70-130); Carbon Dioxide 23 mmol/L (22-29); Estimated GFR 101; Glucose 89 mg/dL (70-105)
[2023-02-13 06:54] LABS: Calcium 8.8 mg/dL (7.8-10.44)
[2023-02-13] MEDS: Cefdinir 300 MG CAP PO SCH (09:06)
[2023-02-13] MEDS: Famotidine 20 MG TAB PO SCH (09:06)
[2023-02-13 12:53] VITALS: BP 133/93; TEMP 98.6
== END 2023-02-13 12:55 | disposition home or self-care (01) | DRG 872 ==
LOC: T4-A 10:13
PROVIDERS: ADMIT Internal Medicine; ATTEND Internal Medicine
DX: A41.9 Sepsis, unspecified organism (principal); Z68.42 Body mass index [BMI] 45.0-49.9, adult; N10 Acute pyelonephritis; E87.1 Hypo-osmolality and hyponatremia; E66.01 Morbid (severe) obesity due to excess calories; Z79.899 Other long term (current) drug therapy; Z98.890 Other specified postprocedural states; Z82.49 Family history of ischemic heart disease and other diseases of the circulatory system
CPT/HCPCS: 36415; 74176; 80048; 83036; 85025; 87086; J0696; J3490; J7050